=== PATIENT | male | born 1975 | race Two or more races ===

== ENCOUNTER → 2019-03-07 07:09 | Outpatient (CLI) | payer OTHER, SELFPAY ==
--- NOTE | 2019-03-07 09:41 | STRESSREP_ITS ---
Stress Test Report Date: 03/07/2019 Procedure: Exercise tolerance test/imaging study Indications: Chest pain Consent: Per the patient Procedure: The patient exercised on a Lefty protocol for 10 minutes and 1 second achieving a peak heart rate of 196 bpm (111% predicted maximal heart rate) with a peak blood pressure 188/90 mmHg and a peak MET capacity of 11.7 METs. The baseline ECG demonstrated normal sinus rhythm. The peak exercise ECG demonstrated sinus tachycardia with minimal upsloping ST depressions in the inferior and lateral leads. EKG during recovery revealed no evidence of significant ischemia [There were no cardiac dysrhythmias pretest, during exercise, or recovery]. The functional capacity was considered normal for age. There was [no complaint of chest discomfort during exercise or recovery]. The examination was discontinued secondary to leg discomfort. Impression: 1. Technically adequate (percent predicted maximal heart rate greater than 85%) exercise tolerance test 2. Stress test is negative for exercise-induced EKG changes of ischemia 3. The test test is negative for exercise-induced chest pain 4. Functional capacity is normal for age 5. Nuclear images pending Myocardial perfusion imaging study: Technique: The patient was injected with 11.8 mCi of technetium 99m Cardiolite and subsequently rest SPECT Cardiolite nuclear imaging was obtained in the horizontal long, vertical long, and short axis views. The patient exercised on a Lefty protocol. Please see above for details. The patient was injected with 33.5 mCi of technetium 99m Cardiolite and subsequently stress SPECT Cardiolite nuclear imaging was obtained in the horizontal long, vertical long, and short axis views. A gated Cardiolite study at peak stress was obtained. Interpretation: Rest and stress SPECT Cardiolite nuclear imaging status post realignment, normalization, and attenuation correction, demonstrates overall normal myocardial radioisotope uptake after attenuation correction. The gated Cardiolite study demonstrates no significant regional wall motion abnormalities. The reported LVEF is greater than 70 %. Impression: 1. There is no evidence of significant ischemia or infarction. 2. The gated Cardiolite study reports an LVEF of greater than 70 %. This note was generated with [employer] software. It may contain incorrect words, spelling, and punctuation that were not noted in checking the note before signing.
== END ==
PROVIDERS: Referring Provider Specialist; Visit Provider Specialist
DX: R07.9 Chest pain, unspecified (principal)
CPT/HCPCS: 78452; 93017; A9500; A4216

== ENCOUNTER 2019-04-28 07:55 | Day surgery (SDC) | payer OTHER, SELFPAY ==
[2019-04-28 08:14] VITALS: BMI 24.2
--- NOTE | 2019-04-28 10:47 | HP.PCM_ITS ---
History of Present Illness Date of Admission: 04/28/19 Chief Complaint: Chest pain, back pain The patient is a 43 year old M [presenting with chest pain. 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 He has had heart caths x2 in the past and had a possible moderate stenosis in the mid LAD. There was a question whether this was just due to tortuosity in the vessel. He had a recent stress test which was negative for ischemia. However he has been having ongoing chest pain and is concerned that this could be ischemic in origin. He is on aspirin and a statin. He also saw a neurologist and had an MRI to see if this could be due to nerve compression. This was apparently unremarkable.] Review of systems: All systems reviewed. All else is negative except that in the HPI. Past Medical History Allergies/Adverse Reactions: Allergies No Known Allergies Allergy (Unverified 04/25/19 17:15) Home Medications: Ambulatory Orders Medication Instructions Recorded atorvastatin 20 mg tablet 20 mg PO QHS 04/25/19 losartan 25 mg tablet 25 mg PO DAILY 04/25/19 Smoking Status: Never smoker Objective: Weight: 164 lb Body Mass Index (BMI) 24.2 General: Awake, Alert, Oriented x 3 HEENT: Atraumatic Oral: Moist Mucosa Neck: Supple Cardiovascular: Regular Rhythm Abdomen: Soft Extremities: No edema Skin: No Rashes Psych/Mental Status: Appropriate VTE Information - Inpt Only VTE Present on Admission: No VTE Mechan Device Prophylaxis: None VTE Pharm Prophylaxis ordered?: No Reason prophylaxis not ordered:: Procedure Not Indicated - not indicated Rhythm: EKG: ECHO: Stress Test: Cardiac Cath: PCI: CT Surgery: Holter monitor: EPS: PPM: CXR: Chest CT Scan: Assessment/Plan 1. Chest pain: Patient is concerned that this could be ischemic in etiology. He does not have an alternate explanation at this time. He does have possible moderate stenosis in the mid LAD from prior cardiac catheterizations. He does have strong family history of premature coronary artery disease. Risks and benefits of all approaches discussed with the patient in detail. Patient prefers to undergo coronary angiography which I think is reasonable at this point. Rest of the management will be based on coronary angiography findings.
--- NOTE | 2019-05-01 12:02 | CL.D_ITS ---
Patient Name: ANNIA HOPKINS Study Date: 04/28/2019 Performing: Ba Osborn MD Ht: 70 inches 177.8 cm : 1975 Wt: 164.2 lbs 74.38 kg Age: 43 Gender: male BSA: 1.92 PROCEDURE(S) PERFORMED [id number]/LV CLINICAL PROFILE AND INDICATIONS Indications: Worsening Angina Heart Failure: None Stress/Imaging Stress Test w/SPECT MPI: Yes Result: NegativeStress Test with SPECT MPI: Negative CAD Presentations: Unstable angina. CONCLUSIONS Mild non obstructive CAD RECOMMENDATIONS Continue ASA, statin, risk factor modification DESCRIPTION OF PROCEDURE The patient arrived to the procedure lab. The risks and benefits of the procedure as well as a full d escription of our services here and current unavailability of surgical backup were fully explained to the patient and/or their significant other prior to the catheterization. The Timeout was completed, verifying the correct patient and procedure. The patient's procedural site was prepped and draped in the usual fashion. Local anesthetic was given subcutaneously to right radial region with Lidocaine 2% . Using a modified Seldinger technique, arterial access was obtained via the right radial artery, a 6 Fr sheath was inserted. Left Coronary Artery selective angiography was performed in multiple views u sing a 4 Fr. JL3.5 catheter. Left Ventriculography was performed in VALDES projection using a 5 Fr. JR4. LV to AO pullback pressures were then recorded. Right Coronary Artery selective angiography was then performed in multiple views using a 5 Fr. JR 4 catheter.The arterial sheath was pulled and a TR Band was applied for hemostasis CORONARY ANGIOGRAPHY DOMINANCE: Right Dominant LEFT HEART ASSESSMENT Left Ventricular Ejection Fraction: by LV Gram 60 % Normal LV wall motion LEFT MAIN: Angiographically normal LEFT ANTERIOR DESCENDING ARTERY: MID LAD: 20-30 % Stenosis CIRCUMFLEX ARTERY: Angiographically normal RIGHT CORONARY ARTERY: Angiographically normal VALVE FINDINGS: No Aortic Valve Stenosis No Mitral Insufficency COMPLICATIONS No Complications PROCEDURE MEDICATIONS Oxygen: 2 L/min via nasal cannula Heparin given IA 04/28/2019 11:23:36 Verapamil 2.5mg, Ntg 100mcgs, 3000 units of Heparin given IA 04/28/2019 11:23:36 SUMMARY OF HEMODYNAMIC DATA Time AIR REST ECG 10:56:21 AO 121/79 (100) SA 11:26:30 LV 125/-3, 7 11:31:43 LV 123/-1, 8 11:31:49 LV 122/-7, 5 11:32:20 LVp 144/-11, 10 11:32:28 AOp 134/77 (103) 11:32:33 Signed By Ba Osborn MD On 05/01/2019 12:02:08 Ba Osborn MD
== END 2019-04-28 13:30 | disposition home or self-care (01) ==
PROVIDERS: Referring Provider Specialist; Visit Provider Specialist
DX: I25.110 Atherosclerotic heart disease of native coronary artery with unstable angina pectoris (principal); R07.9 Chest pain, unspecified; Z79.82 Long term (current) use of aspirin; Z79.899 Other long term (current) drug therapy; Z82.49 Family history of ischemic heart disease and other diseases of the circulatory system
CPT/HCPCS: 93458; J7040; C1769; C1894; Q9967